=== PATIENT | female | born 1955 | race Caucasian/White ===

== ENCOUNTER 2017-08-11 06:26 | Day surgery (SDC) ==
[2014-05-18 11:57] VITALS: BMI 34.5
[2017-08-11] MEDS ORDERED: LIDOCAINE 1% 20 ML MDV ID STA (07:39)
[2017-08-11] MEDS ORDERED: DIPRIVAN 20 ML VIAL IVP ONE (08:06)
[2017-08-11] MEDS ORDERED: VERSED ONE (08:06)
[2017-08-11 09:19] VITALS: BP 138/83; TEMP 97.6
--- NOTE | 2017-08-12 08:34 | OP ---
INDICATIONS FOR PROCEDURE: 62 year old female presents for colonoscopy examination. She has a history of adenomatous polyps was found on colonoscopy three years ago. MEDICATIONS: SEE ANESTHESIA NOTES. PROCEDURE: COLONOSCOPY. REPORT: The risks, benefits, alternatives and limitations were discussed in detail with the patient. Informed consent was obtained. After adequate sedation was achieved, a digital rectal exam revealed good tone, no masses. The colonoscope was introduced into the rectum and advanced under direct visual guidance to the cecum. The cecum was identified by the appendiceal orifice and IC valve. I then slowly withdrew the scope in the circumferential manner and examined the mucosa quite carefully. I looked on the proximal and distal sides of the folds and flexures the best as possible. I was able to retroflex the scope the in right colon and left colon to increase visualization. The colonic mucosa was unremarkable it's entire length other then diverticulosis scattered throughout the sigmoid. There was small mouth diverticuli present. The scope was retroflexed to look at the anal canal which was also unremarkable. The prep good. The withdraw time with 11 minutes and 23 seconds. The patient tolerated the procedure well with stable vital signs and pulse oximetry throughout. IMPRESSION: 1. Sigmoid diverticulosis RECOMMENDATIONS: 1. High fiber diet 2. Office visit as needed 3. Colonoscopy examination again in 5 years sooner if there are signs or symptoms to indicate otherwise. CC: Dr. Manuel CURRY
== END 2017-08-11 09:25 | disposition home or self-care (01) ==
LOC: SURG 06:26
PROVIDERS: ATTEND Internal Medicine Gastroenterology
DX: Z09 Encounter for follow-up examination after completed treatment for conditions other than malignant neoplasm (principal); Z86.010 Personal history of colon polyps; K57.30 Diverticulosis of large intestine without perforation or abscess without bleeding

== ENCOUNTER 2018-06-15 10:42 | Day surgery (SDC) | payer OTHER ==
[2014-05-18 11:57] VITALS: BMI 34.5
[2018-06-15 12:33] VITALS: TEMP 98.7
[2018-06-15] MEDS ORDERED: ZOFRAN 4 MG/2 ML ONE (12:45)
[2018-06-15] MEDS ORDERED: DIPRIVAN 20 ML VIAL IVP ONE (12:45)
[2018-06-15] MEDS ORDERED: SUBLIMAZE ONE (12:45)
[2018-06-15] MEDS ORDERED: VERSED ONE (12:45)
[2018-06-15 16:11] VITALS: BP 121/67
--- NOTE | 2018-06-16 13:55 | OP ---
INDICATIONS FOR PROCEDURE: 63-year-old female presents complaining of epigastric abdominal discomfort. She has intermittent abdominal discomfort usually triggered by greasy foods. She has been on Protonix for about 3 weeks and has felt better. She did have a CT scan showing some gastric wall thickening. She also complains of intermittent dysphagia to solid foods. She presents for endoscopy. MEDICATIONS: SEE ANESTHESIA NOTES. PROCEDURE: ENDOSCOPY, ANGI BIOPSY, GASTRIC BIOPSY, CHADIAN DILATATION. REPORT: The risks, benefits, alternatives and limitations were discussed in detail with the patient. Informed consent was obtained. After adequate sedation was achieved, the video endoscope was introduced in the posterior pharynx and esophagus under direct vision and easily advanced down to the second portion of the duodenum. I then slowly withdrew. The duodenal mucosa appeared unremarkable as did the duodenal bulb. In the antrum there was a little bit of erythema consistent of antritis. Two biopsies from the antral wall and fundic body obtained for H. Pylori testing. In the body and fundus there was benign appearing gastric polyps. These were biopsied for histologic review. The scope was retroflexed to look at the cardia and back of the fundus which was unremarkable. The scope was anteflexed and withdrawn back through the esophagus which was unremarkable. I advanced the scope back down the gastric lumen and I placed a guidewire. Over the guidewire, I easily advanced the 54 [place] Dilator. The patient tolerated the procedure well with stable vital signs and pulse oximetry throughout. IMPRESSION: 1. MINIMAL ANTRITIS 2. BENIGN APPEARING GASTRIC POLYPS, BIOPSIED 3. SUCCESSFUL PASSIVE DILATION OF THE ESOPHAGUS 4. SHE CLINICALLY HAS BEEN FEELING BETTER ON PROTONIX. RECOMMENDATIONS: 1. Reflux precautions. 2. Await H. Pylori, if positive will initiate treatment. 3. Await pathology results of the gastric polyps to confirm benign nature. 4. I suggested that she continue on the Protonix for a couple of weeks and then she can start using it on as needed only basis. 5. Will see her back in the office as needed. CC: DR. LATRICE CURRY
== END 2018-06-15 13:50 | disposition home or self-care (01) ==
LOC: SURG 10:42
PROVIDERS: ATTEND Internal Medicine Gastroenterology
DX: R10.10 Upper abdominal pain, unspecified (principal); R93.5 Abnormal findings on diagnostic imaging of other abdominal regions, including retroperitoneum; R13.14 Dysphagia, pharyngoesophageal phase; K31.7 Polyp of stomach and duodenum; K29.50 Unspecified chronic gastritis without bleeding
CPT/HCPCS: 87339